=== PATIENT | male | born 1955 | race Caucasian/White ===

== ENCOUNTER 2020-01-10 10:08 | Outpatient (CLI) | payer OTHER, SELFPAY ==
--- NOTE | ~2020-01-10 | MR_ITS ---
EXAMINATION: MR knee LT wo con DATE: 01/10/2020 11:52 INDICATION: Left knee pain TECHNIQUE: Magnetic resonance imaging (MRI) of the left knee was performed without intravenous contra st. Sequences included coronal PD-weighted FSE, coronal PD-weighted FS FSE, sagittal T2-weighted FSE , sagittal PD-weighted FS FSE and axial PD weighted fat saturated FSE. COMPARISON: None. FINDINGS: Medial compartment: Full-thickness radial tear near the posterior root of the medial meniscus. Mild chondral surface regu larity along the posterior weightbearing medial femoral condyle. Lateral compartment: Lateral meniscus is normal. Chondral swelling and partial-thickness fissuring at the medial side of t he lateral tibial plateau along the shoulder the intercondylar eminence. Patellofemoral compartment: Deep chondral fissuring with underlying subarticular edema at the medial patellar facet and patellar apical ridge and at the inferomedial aspect of the lateral facet. Chondral ulceration and fissuring w ith underlying cortical irregularity at the inferior aspect of the trochlear groove and medial trochl ea. Ligaments and tendons: Anterior and posterior cruciate ligaments are normal. There is mild thickening and minimal increased signal at the proximal aspect of the medial collateral and fibular collateral ligaments without surro unding edema consistent with likely mild scarring related to chronic sprains. Heterotopic ossicles at the distal tibial insertion of the patellar tendon likely sequela of chronic Edgerton-Schlatter's dise ase. The patellar and quadriceps tendons are normal. The visualized medial and lateral hamstring tend ons as well as the iliotibial band are normal. Fluid: Small left knee joint effusion. No loose osteochondral bodies identified. Small Harrison's cyst. Osseous/other: Bone alignment is normal. No fracture or pathologic marrow replacing process. IMPRESSION: 1. Full-thickness radial tear near the posterior root of the medial meniscus. 2. 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 3. Likely reactive small right knee joint effusion. 4. Small Harrison's cyst. Reviewed, dictated and finalized at location A. IMPRESSION: 1. Full-thickness radial tear near the posterior root of the medial meniscus. 2. Mild tricompartmental osteoarthritis with moderate grade chondral malacia in the medial and lateral compartments and high-grade chondromalacia in the ambrosio lofemoral compartment. 3. Likely reactive small right knee joint effusion. 4. Small Harrison's cyst.
== END 2020-01-10 10:09 | disposition home or self-care (01) ==
LOC: ANHIMG 10:17
PROVIDERS: PCP Internal Medicine Geriatric Medicine; Referring Provider Orthopaedic Surgery; Visit Provider Internal Medicine Geriatric Medicine
DX: M71.22 Synovial cyst of popliteal space [Baker], left knee (principal); M25.462 Effusion, left knee; S83.242A Other tear of medial meniscus, current injury, left knee, initial encounter; X58.XXXA Exposure to other specified factors, initial encounter
CPT/HCPCS: 73721